=== PATIENT | male | born 1940 | race Caucasian/White ===

== ENCOUNTER 2017-06-26 07:40 | Day surgery (SDC) | payer MEDICARE ==
[~2017-06-26] VITALS: Ht 185.4 cm; Wt 102.7 kg
[2017-06-26] VITALS (7 sets, daily range): BP systolic 123–156; BP diastolic 60–92; PULSE 82–93; RESP 20; TEMP 97.8–98; O2SAT 92–97
[2017-06-26] MEDS ORDERED: CARV25TA PO (07:58)
[2017-06-26] MEDS ORDERED: FLUO1TAB3 PO (08:01)
[2017-06-26] MEDS ORDERED: NOVORP2 SQ (08:01)
[2017-06-26] MEDS ORDERED: COZA100T PO (08:02)
[2017-06-26] MEDS ORDERED: CHOL4POW4 PO (08:03)
[2017-06-26] MEDS ORDERED: FOLBTAB4 PO (08:05)
[2017-06-26] MEDS ORDERED: FORT600S SQ (08:06)
[2017-06-26] MEDS ORDERED: CALG500 PO (08:07)
[2017-06-26] MEDS ORDERED: ALPH1CAP PO (08:08)
[2017-06-26] MEDS ORDERED: VITA1000 PO (08:08)
[2017-06-26] MEDS ORDERED: ASPI81CH37 CHEW (08:09)
[2017-06-26] MEDS ORDERED: FISHCAP4 PO (08:10)
[2017-06-26] MEDS ORDERED: CHLORHEXIDINE GLUCONATE 2 % 1 PACK (2 CLOTHS) TOPICAL PRN (08:15)
[2017-06-26] MEDS ORDERED: SODIUM CHLORID 0.9% 500 ML IV PRN (08:15)
[2017-06-26] MEDS ORDERED: POVIDONE IODINE 5% (ANTISEPSIS KIT) 4 APPLICATIONS EACH NARE PRN (08:15)
[2017-06-26] MEDS ORDERED: METOPROLOL TARTRATE 25 MG TAB PO PRN (08:15)
[2017-06-26] MEDS ORDERED: INSULIN HUMAN REGULAR 1,000 UNITS/10 ML VIAL SQ PRN (08:15)
[2017-06-26] MEDS ORDERED: LACTATED RINGER'S 1000 ML IV PRN (08:15)
[2017-06-26] MEDS ORDERED: ceFAZolin 2 GM PREMIX 50 ML IV SCH (08:30)
[2017-06-26] MEDS: SODIUM CHLOR 0.9% 1000 ML INJ 1,000 ML IV SCH ×2 (08:30→08:47)
[2017-06-26] MEDS ORDERED: FENO54TA PO (08:42)
[2017-06-26 08:58] LABS: AUTOMATED NEUTROPHIL # 1.8 TH/MM3 (1.8-7.7); BASOPHIL % 0.5 % (0.0-2.0); EOSINOPHIL # 0.2 TH/MM3 (0-0.4); LYMPH % 44.5 % (9.0-44.0); LYMPHOCYTE # 1.9 TH/MM3 (1.0-4.8); MEAN CELL VOLUME 99.9 FL (80.0-100.0); MEAN CORPUSCULAR HEMOGLOBIN 33.7 PG (27.0-34.0); MEAN CORPUSCULAR HGB CONC 33.8 % (32.0-36.0); MONO % 7.5 % (0.0-8.0); NEUT % 43.5 % (16.0-70.0); PLATELET COUNT 90 TH/MM3 (150-450); RED CELL DISTRIBUTION WIDTH 14.3 % (11.6-17.2); WHITE BLOOD COUNT 4.2 TH/MM3 (4.0-11.0)
[2017-06-26 09:03] LABS: HEMO FLAGS AUTO DIFF
[2017-06-26 09:26] LABS: BICARBONATE 24.5 MEQ/L (21.0-32.0); POTASSIUM 3.5 MEQ/L (3.5-5.1)
[2017-06-26] MEDS ORDERED: LIDOCAINE HCL 1% 30 ML VIAL ONE (09:33)
[2017-06-26 09:48] LABS: OVALOCYTES 1+ (NORMAL); PLATELET ESTIMATE SMEAR LOW (NORMAL); PLATELET MORPHOLOGY NORMAL (NORMAL); SCAN/DIFF AUTO DIFF CONFIRMED
--- NOTE | 2017-06-26 09:50 | EKG ---
Date Performed: 06/26/2017 Time Performed: 08:17:14 PTAGE: 77 years EKG: Sinus rhythm BORDERLINE LEFT AXIS DEVIATION MODERATE INTRAVENTRICULAR CONDUCTION DELAY MINIMAL VOLTAGE CRITERIA F OR LVH, CONSIDER NORMAL VARIANT NONSPECIFIC T-WAVE ABNORMALITY POOR R WAVE PROGRESSION BORDERLINE ECG PREVIOUS TRACING : 11/05/1997 00.16 DOCTOR: Reji Durant Interpretating Date/Time 06/26/2017 09:49:45
[2017-06-26] MEDS ORDERED: PHENYLEPH/NS 1000 MCG/10 ML SYR IV ONE (12:00)
[2017-06-26] MEDS ORDERED: ROCURONIUM INJ 50 MG/5 ML SYRINGE IV PUSH ONE (12:00)
[2017-06-26] MEDS ORDERED: ePHEDrine/NS 25 MG/5 ML SYR IV ONE (12:00)
[2017-06-26] MEDS ORDERED: ONDANSETRON HCL 4 MG/2 ML VIAL IV PUSH ONE (12:00)
[2017-06-26] MEDS ORDERED: LIDOCAINE HCL 1% PF 5 ML AMPULE OTHER ONE (12:00)
[2017-06-26] MEDS ORDERED: DO NOT ADM ANY ANTICOAGULANT DRUGS PRN (12:45)
--- NOTE | 2017-06-26 13:13 | PD.RAD ---
Post CT Procedure Prog Note Pre Procedure Diagnosis: (1) Renal mass, left Post Procedure Diagnosis: (1) Renal mass, left Procedure Date: Jun 26, 2017 Supervising Radiologist: Dio Abraham Anesthesia: General Plan of Activity Patient to Unit: PACU Patient Condition: Good See PACS Report for procedural detail/treatment Biopsy Imaging Guidance: CT Side: Left Biopsy Procedure: Kidney Specimen: Core Biopsy (18) Findings: 1.5 cm left renal mass. 7 fr sheath placed to lesion edge. 18 gauge core bx. Cryoablation with single probe. Dio Abraham MD Jun 26, 2017 13:13
[2017-06-26] MEDS ORDERED: oxyCODONE/ACETAMINOPHEN 5 MG/325 MG TAB PO PRN (13:15)
--- NOTE | 2017-06-26 13:40 | RADRPT ---
EXAM DATE/TIME: 06/26/2017 10:17 INDICATIONS : Left renal mass. Anesthesia and pain control was provided by the Anesthesia department. Prophylactic antibiotics were administered with appropriate pre-procedure timing. DEVICE(S): 1.) Cryoablation probe 1.7cm MEDICAL HISTORY : None. SURGICAL HISTORY : None. ENCOUNTER: Initial ACUITY: 1 day PAIN SCORE: 0/10 LOCATION: Left inguinal PROCEDURE : 1. CT guided cryoablation. Under sterile conditions and using aseptic technique with CT guidance the mass was localized and sati sfactory approach was taken to access the lesion. Using automated exposure control and adjustment of the mA and/or kV according to patient size, radiation dose was kept as low as reasonably achievable to obtain optimal diagnostic quality images. DICOM format image data is available electronically for review and comparison. [employer] Cryoprobes were employed using percutaneous technique employing the prescribed probes. A freeze-thaw, freeze-thaw technique was employed and serial imaging demonstrated an ice ball encomp assing the entire lesion. Post procedure images demonstrate expected postoperative changes without e vidence of hematoma. CONCLUSION: Uncomplicated cryoablation as above. Dio Abraham MD on June 26, 2017 at 13:35 Board Certified Radiologist. This report was verified electronically.
--- NOTE | 2017-06-27 12:09 | RADRPT ---
EXAM DATE/TIME: 06/26/2017 10:17 [facility] COMPARISON: No previous studies available for comparison. INDICATIONS : Left renal mass. BIOPSY SITE: Left kidney Anesthesia and pain control was provided by the Anesthesia department. Prophylactic antibiotics were administered with appropriate pre-procedure timing. DEVICE(S): 1.) 18 gauge Temno core biopsy needle 20cm MEDICAL HISTORY : None. SURGICAL HISTORY : None. ENCOUNTER: Initial ACUITY: 1 day PAIN SCORE: 0/10 LOCATION: Left flank A total of one core specimen(s) were obtained and sent to the laboratory for pathologic evaluation. PROCEDURE: 1. CT guided renal biopsy. Prior to the procedure informed consent was obtained. Any appropriate prior imaging studies were rev iewed. Using automated exposure control and adjustment of the mA and/or kV according to patient size, radiat ion dose was kept as low as reasonably achievable to obtain optimal diagnostic quality images. DICOM format image data is available electronically for review and comparison. The site was prepped in a sterile fashion. Full sterile technique was used, including cap, mask, bob rile gloves and gown and a large sterile sheet. Hand hygiene and 2% chlorhexidine and/or betadine/al cohol prep was utilized per protocol for cutaneous antisepsis. The skin and subcutaneous tissues wer e infiltrated with local anesthetic solution. With CT guidance the previously identified target was localized. Biopsy was performed using the presc ribed needle as above. Adequate hemostasis was obtained with compression at the puncture site. Follow-up CT scan reveals no hemorrhage. The patient tolerated the procedure well and there were no complications. The patient was returned to the Radiology Outpatient Unit in stable condition. CONCLUSION: Uncomplicated CT guided biopsy. This was done in conjunction with regional cryo ablation. Dio Abraham MD on June 27, 2017 at 12:03 Board Certified Radiologist. This report was verified electronically.
== END 2017-06-26 17:00 | disposition home or self-care (01) ==
LOC: HROP 07:40 → HRIP 07:41 → HROP 17:00
PROVIDERS: ATTEND Urology
DX: N28.89 Other specified disorders of kidney and ureter (principal); R94.31 Abnormal electrocardiogram [ECG] [EKG]; E11.9 Type 2 diabetes mellitus without complications; Z79.4 Long term (current) use of insulin
CPT/HCPCS: 50200; 50593; 77012; 77013; 80048; 82948; 85025; 88305; 93005; C1769; C1894; C2618; J0690; J2370; J2405; J3010; J7030

== ENCOUNTER 2017-07-04 13:45 | Day surgery (SDC) | payer MEDICARE ==
[~2017-07-04 13:45] MED LIST: ALPH1CAP PO; ASPI81CH37 CHEW; CALG500 PO; CARV25TA PO; CHOL4POW4 PO; COZA100T PO; FENO54TA PO; FISHCAP4 PO; FLUO1TAB3 PO; FOLBTAB4 PO; FORT600S SQ; NOVORP2 SQ; VITA1000 PO
[2017-07-04 14:13] VITALS: BP 116/62; PULSE 79; RESP 20; TEMP 98.4; O2SAT 96
== END 2017-07-04 14:10 | disposition home or self-care (01) ==
LOC: HROP 13:45 → HRIP 13:46 → HROP 14:10
PROVIDERS: ATTEND Radiology Body Imaging
DX: N28.89 Other specified disorders of kidney and ureter (principal)